=== PATIENT | male | born 1970 | race Caucasian/White ===

== ENCOUNTER 2018-07-09 20:42 | Emergency (ER) | payer OTHER, MEDICARE ==
[2018-07-09] MEDS ORDERED: Metoprolol Tartrate 5 MG/5 ML VIAL ONE (21:01)
[2018-07-09 21:07] LABS: #Basophils 0.1 thou/uL (0.0-0.2); #Eosinphils 0.2 thou/uL (0.0-0.7); #Lymphocytes 2.9 thou/uL (1.20-3.40); #Monocytes 0.7 thou/uL (0.11-0.59); #Neutrophils 5.9 thou/uL (1.40-6.50); %Basophils 0.8 % (0.0-1.0); %Lymphocytes 29.4 % (21.0-51.0); %Monocytes 7.4 % (0.0-10.0); %Neutrophils 60.4 % (42.0-75.0); Hemoglobin 13.3 g/dL (14.0-18.0); Mean Corpuscular HGB CONC 33.7 g/dL (32.0-36.0); Mean Corpuscular Hemoglobin 32.8 pg (27.0-31.0); Mean Corpuscular Volume 97.3 fL (78.0-98.0); Mean Platelet Volume 8.4 fL (7.4-10.4); Platelet Count 249 thou/uL (130-400); RBC Distribution Width 11.9 % (11.5-14.5); Red Blood Cell (RBC) Count 4.06 mill/uL (4.70-6.10); White Blood Cell (WBC) Count 9.8 thou/uL (4.8-10.8)
[2018-07-09 21:19] LABS: ALT (SGPT) 33 U/L (8-55); AST (SGOT) 21 U/L (5-34); Alkaline Phosphatase 59 U/L (40-150); Anion Gap 13 mmol/L (10-20); BUN (Urea Nitrogen) 15 mg/dL (8.9-20.6); Bilirubin, Total 0.2 mg/dL (0.2-1.2); Calc. Creatinine Clearance 0 mL/min (70-130); Calcium 9.3 mg/dL (7.8-10.44); Carbon Dioxide 25 mmol/L (22-29); Chloride 107 mmol/L (98-107); Estimated GFR-MDRD Greater than 90; Globulin 2.9 g/dL (2.4-3.5); Glucose 110 mg/dL (70-105); Lipase 40 U/L (8-78); Protein, Total 6.9 g/dL (6.0-8.3); Sodium 141 mmol/L (136-145)
[2018-07-09 21:23] LABS: CKMB 1.6 ng/mL (0-6.6); Troponin I Less than 0.010 ng/mL (< 0.028)
[2018-07-09] MEDS ORDERED: Nitroglycerin 2% Ointment 1 INCH/1 GM Packet ONE (21:25)
--- NOTE | 2018-07-09 23:09 | RAD ---
PORTABLE CHEST: 07/09/20187 HOURS COMPARISON: No prior films available for comparison. FINDINGS: The heart is normal in size for an AP film and body habitus. No vascular congestion, edema, or pleur al effusion is present. There is no lobar infiltrate. There is some minimal prominence of some of t he basilar lung markings. In part, this could be due to overlying soft tissues. IMPRESSION: No definite acute finding. POS: HOME
== END 2018-07-09 23:27 | disposition short-term general hospital (02) ==
LOC: BURERS 20:42
DX: I20.0 Unstable angina (principal); I10 Essential (primary) hypertension; F17.210 Nicotine dependence, cigarettes, uncomplicated; Z79.899 Other long term (current) drug therapy
CPT/HCPCS: 71045; 80053; 82553; 83690; 84484; 85025; 85379; 93005; 94760; 96374

== ENCOUNTER 2018-09-01 08:11 | Emergency (ER) | payer OTHER, MEDICARE ==
[2018-09-01] MEDS ORDERED: diphenhydrAMINE 50 MG/ML VIAL ONE (08:24)
[2018-09-01] MEDS ORDERED: Morphine 4 MG/ML VIAL ONE (08:24)
[2018-09-01 08:26] LABS: #Basophils 0.1 thou/uL (0.0-0.2); #Lymphocytes 1.9 thou/uL (1.20-3.40); #Monocytes 0.7 thou/uL (0.11-0.59); #Neutrophils 12.4 thou/uL (1.40-6.50); %Basophils 0.4 % (0.0-1.0); %Eosinophils 0.1 % (0.0-10.0); %Lymphocytes 12.4 % (21.0-51.0); %Monocytes 4.8 % (0.0-10.0); %Neutrophils 82.2 % (42.0-75.0); Hemoglobin 16.5 g/dL (14.0-18.0); Mean Corpuscular HGB CONC 34.1 g/dL (32.0-36.0); Mean Corpuscular Hemoglobin 32.2 pg (27.0-31.0); Mean Corpuscular Volume 94.4 fL (78.0-98.0); Mean Platelet Volume 7.8 fL (7.4-10.4); Platelet Count 314 thou/uL (130-400); RBC Distribution Width 11.5 % (11.5-14.5); White Blood Cell (WBC) Count 15.1 thou/uL (4.8-10.8)
[2018-09-01 08:35] LABS: INR-International Normal Ratio 0.9; PTT 27.3 SEC (22.9-36.1); Prothrombin Time 12.7 SEC (12.0-14.7)
[2018-09-01] MEDS ORDERED: Metoprolol Tartrate 5 MG/5 ML VIAL ONE (08:37)
[2018-09-01 08:43] LABS: ALT (SGPT) 33 U/L (8-55); AST (SGOT) 26 U/L (5-34); Albumin 4.4 g/dL (3.5-5.0); Alkaline Phosphatase 65 U/L (40-150); Anion Gap 14 mmol/L (10-20); BUN (Urea Nitrogen) 10 mg/dL (8.9-20.6); Bilirubin, Total 0.4 mg/dL (0.2-1.2); Calc. Creatinine Clearance 0 mL/min (70-130); Calcium 9.5 mg/dL (7.8-10.44); Carbon Dioxide 25 mmol/L (22-29); Chloride 103 mmol/L (98-107); Estimated GFR-MDRD Greater than 90; Globulin 3.8 g/dL (2.4-3.5); Glucose 140 mg/dL (70-105); Potassium 4.2 mmol/L (3.5-5.1); Protein, Total 8.2 g/dL (6.0-8.3); Sodium 138 mmol/L (136-145)
[2018-09-01 09:21] LABS: CKMB 14.3 ng/mL (0-6.6); Troponin I 0.371 ng/mL (< 0.028)
--- NOTE | 2018-09-01 19:52 | RAD ---
PORTABLE CHEST: Date: 09-01-18 An AP portable film at 0759 is compared with an 07-09-18 study. FINDINGS: The heart size is unchanged and is within limits of normal. There is no vascular congestion, edema, o r pleural effusion. There is a little scarring in the left midlung. Allowing for slightly light techn ique, I do not feel there is any significant acute infiltrate. IMPRESSION: No acute finding. POS: HOME
== END 2018-09-01 08:51 | disposition short-term general hospital (02) ==
LOC: BURERS 08:11
DX: I21.19 ST elevation (STEMI) myocardial infarction involving other coronary artery of inferior wall (principal); I10 Essential (primary) hypertension
CPT/HCPCS: 36415; 71045; 80053; 82553; 84484; 85025; 85610; 85730; 94760; 96365; 96374; 96375; J1200; J2270